=== PATIENT | male | born 1955 | race Caucasian/White ===

== ENCOUNTER 2019-07-11 05:56 | Outpatient (CLI) | payer OTHER ==
[2019-07-11 12:08] LABS: #Basophils 0.1 thou/uL (0.0-0.2); #Lymphocytes 1.1 thou/uL (1.20-3.40); #Monocytes 1.1 thou/uL (0.11-0.59); #Neutrophils 9.1 thou/uL (1.40-6.50); %Basophils 0.4 % (0.0-1.0); %Eosinophils 0.3 % (0.0-10.0); %Lymphocytes 9.9 % (21.0-51.0); %Monocytes 9.9 % (0.0-10.0); %Neutrophils 79.5 % (42.0-75.0); Hemoglobin 17.8 g/dL (14.0-18.0); Mean Corpuscular HGB CONC 32.8 g/dL (32.0-36.0); Mean Corpuscular Volume 94.7 fL (78.0-98.0); Mean Platelet Volume 7.7 fL (7.4-10.4); Platelet Count 232 thou/uL (130-400); RBC Distribution Width 14.4 % (11.5-14.5); Red Blood Cell (RBC) Count 5.72 mill/uL (4.70-6.10); White Blood Cell (WBC) Count 11.4 thou/uL (4.8-10.8)
[2019-07-11 12:48] LABS: Anion Gap 11 mmol/L (10-20); BUN (Urea Nitrogen) 10 mg/dL (8.4-25.7); Calc. Creatinine Clearance 0 mL/min (70-130); Carbon Dioxide 28 mmol/L (23-31); Chloride 101 mmol/L (98-107); Estimated GFR-MDRD 85; Glucose 62 mg/dL (80-115); Potassium 4.1 mmol/L (3.5-5.1); Sodium 136 mmol/L (136-145)
--- NOTE | 2019-07-13 08:24 | EKG ---
Test Reason : Blood Pressure : / mmHG Vent. Rate : 083 BPM Atrial Rate : 083 BPM P-R Int : 142 ms QRS Dur : 094 ms QT Int : 346 ms P-R-T Axes : 004 050 -04 degrees QTc Int : 406 ms Normal sinus rhythm Incomplete right bundle branch block Possible Anterior infarct , age undetermined Abnormal ECG No previous ECGs available Confirmed by DR. Damian PATEL ([id number]) on 07/13/2019 8:24:06 AM Referred By: YEIMI Confirmed By:DR. Damian PATEL
== END 2019-07-11 05:57 | disposition home or self-care (01) ==
LOC: LABBT 05:56 → EDSTATUS 09:00
PROVIDERS: ATTEND Orthopaedic Surgery
DX: Z01.818 Encounter for other preprocedural examination (principal); M75.101 Unspecified rotator cuff tear or rupture of right shoulder, not specified as traumatic
CPT/HCPCS: 80048; 85025; 93005; 93010

== ENCOUNTER 2019-07-11 09:00 | Inpatient (IN) | payer OTHER ==
[2019-07-11 09:48] VITALS: BMI 29.8
[2019-07-27] MEDS ORDERED: Tranexamic Acid 1,000 MG/10 ML VIAL ONE ×2 (05:59→09:42)
[2019-07-27] MEDS ORDERED: Sodium Chloride 0.9% 100 ML ONE (05:59)
[2019-07-27] MEDS ORDERED: Vancomycin 1.5 GRAM/300 ML BAG 1.5 GM/300 ML BAG ONE (05:59)
[2019-07-27] MEDS ORDERED: Lidocaine 1% (PF) 30 ML VIAL ONE (06:22)
[2019-07-27] MEDS ORDERED: Fentanyl 100 MCG/2 ML VIAL ONE ×2 (06:22→06:59)
[2019-07-27] MEDS ORDERED: Midazolam HCl 2 mg/2 ml Vial ONE (06:22)
[2019-07-27] MEDS ORDERED: HYDROmorphone 0.5 MG/0.5 ML SYRINGE ONE (07:00)
[2019-07-27] MEDS ORDERED: HYDROcodone/Acetaminophen 10/325 mg Tablet PO PRN ×4 (07:15→07:35)
[2019-07-27] MEDS ORDERED: Dextrose 5 %-0.45 % NaCl 1,000 ML IV SCH (07:15)
[2019-07-27] MEDS ORDERED: DEXAMETHASONE PO SCH (07:30)
[2019-07-27] MEDS ORDERED: Promethazine HCl 25 MG/ML VIAL IM PRN (07:35)
[2019-07-27] MEDS ORDERED: traMADol HCl 50 MG TAB PO PRN ×2 (07:35)
[2019-07-27] MEDS ORDERED: Acetaminophen 325 MG TAB PO PRN (07:35)
[2019-07-27] MEDS ORDERED: Ondansetron PF 4 MG/2 ML Vial IVP PRN (07:35)
[2019-07-27] MEDS ORDERED: Zolpidem Tartrate 5 MG TAB PO PRN (07:35)
[2019-07-27] MEDS ORDERED: Ropivacaine 0.2% 550 ML 550 ML NERVE BLCK SCH (07:35)
[2019-07-27] MEDS ORDERED: Fentanyl 100 MCG/2 ML VIAL IV PRN (07:36)
[2019-07-27] MEDS ORDERED: Dexamethasone 0.5 MG/5 ML UDCUP PO SCH (07:45)
[2019-07-27] MEDS ORDERED: Non-Formulary Item 1 EACH (Valsartan/Hydrochlorothiazide [Valsartan-Hctz 160-12.5 Mg Tab] PO SCH (09:00)
[2019-07-27] MEDS ORDERED: Hydrochlorothiazide 25 MG TAB PO SCH (09:00)
[2019-07-27] MEDS ORDERED: Valsartan 80 MG TAB PO SCH (09:00)
[2019-07-27] MEDS ORDERED: Aspirin 81 mg Enteric Coated Tablet PO SCH (09:00)
[2019-07-27] MEDS ORDERED: Ropivacaine 0.5% HCl/PF (150 MG/30 ML VIAL) ONE (09:49)
[2019-07-27] MEDS ORDERED: Ondansetron PF 4 MG/2 ML Vial ONE (09:49)
[2019-07-27] MEDS ORDERED: PHENYLEPHRINE-NS 100 MCG/ML 10 ML SYRINGE ONE (09:49)
[2019-07-27] MEDS ORDERED: Dexamethasone 20 MG/5 ML VIAL ONE (09:49)
[2019-07-27] MEDS ORDERED: PROPOFOL 200 MG/20 ML VIAL ONE (09:49)
[2019-07-27] MEDS ORDERED: Glycopyrrolate 0.2 MG/ML 5 ML SYRINGE ONE (09:49)
[2019-07-27] MEDS ORDERED: EPHEDRINE 25 MG/5 ML SYRINGE ONE (09:49)
[2019-07-27] MEDS ORDERED: Ketorolac Tromethamine 30 MG/ML VIAL ONE (09:49)
[2019-07-27] MEDS ORDERED: Lidocaine 1% PF 5 ML VIAL ONE (09:49)
[2019-07-27] MEDS ORDERED: Rocuronium Bromide 10 MG/ML (10ML VIAL) ONE (09:49)
[2019-07-27] MEDS ORDERED: Ropivacaine 0.2% HCl/PF (40 MG/20 ML VIAL) ONE (09:49)
--- NOTE | 2019-07-27 10:56 | OP ---
DATE OF PROCEDURE: 07/27/2019 PROCEDURE: Right reverse total shoulder arthroplasty and biceps tenodesis. PREOPERATIVE DIAGNOSIS: Rotator cuff arthropathy, right shoulder. POSTOPERATIVE DIAGNOSIS: Rotator cuff arthropathy, right shoulder. HAND STRIPPER: Esmer Anguiano PA-C. ESTIMATED BLOOD LOSS: 300. SPECIMEN: None. DRAINS: None. COMPLICATIONS: None. IMPLANTS USED: Tornier 29 standard base plate, 36 mm sphere, 4B Flex stem with a +0 tray and a 36, +9 polyethylene insert, index on 11. NARRATIVE REPORT: After appropriate consent was obtained, the patient was taken to the operating room where general anesthesia was induced. The patient was placed in a beach chair position. Right arm was prepped and draped in the usual sterile fashion. Oblique incision was made in the deltopectoral interval. Cephalic vein was identified and preserved. Dissection was carried down to the conjoint tendon which was retracted medially. The subscapularis was taken down. The biceps tendon was in poor condition. It was taken down off the superior glenoid tubercle and tenodesed to the pectoralis tendon. Excess tendon was removed. The shoulder was then easily dislocated. I opened the humerus with a T handle and then cut a 20 mm retroversion superior cut. The subscapularis had been previously tagged. I used a subscapularis to follow this down to the anterior glenoid and a Bankart retractor was placed anteriorly, and drill was placed posteriorly. I drilled a center hole in the glenoid and reamed with a 1-step reamer. Irrigation was performed. The base plate was deployed without difficulty. Screws were inserted in the usual technique with good compression and fixation. Glenosphere was deployed without difficulty and the screw was tightened. Attention was turned back to the humerus which was opened with a T handle, and after using the acetabular reamer, I then also used a metaphyseal reamer. The appropriate size stem was trialed and polyethylene was trialed until the implants were determined as above. I did drill holes through the humerus, and a cottony Dacron suture was placed around the prosthesis through bone to facilitate repair of the subscapularis. Irrigation was performed. Permanent implants were placed. Shoulder was reduced. The subscapularis was repaired back to bone using the cottony Dacron suture. Irrigation performed again. The deltopectoral interval was tacked shut with 0 Vicryl, subcutaneous tissue was closed with 2-0 Vicryl, skin was closed with delia, and sterile dressing was applied. Job ID: [id number]
[2019-07-27] MEDS ORDERED: Ketorolac Tromethamine 30 MG/ML VIAL IVP SCH ×2 (12:00)
[2019-07-27] MEDS ORDERED: CEFAZOLIN 2 GM in Premix Bag 1 BAG IVPB SCH (14:00)
[2019-07-27] MEDS ORDERED: Vancomycin 1 GM in Premix Bag 1 BAG IVPB SCH (19:00)
[2019-07-27] MEDS ORDERED: Simvastatin 20 MG TAB PO SCH (21:00)
[2019-07-27] MEDS ORDERED: Atorvastatin Calcium 10 MG TAB PO SCH (21:00)
[2019-07-27] MEDS ORDERED: Folic Acid 1 MG TAB PO SCH ×2 (21:00)
== END 2019-07-27 12:00 | disposition home or self-care (01) | DRG 483 ==
LOC: SURG A 07-27 05:47 → EDSTATUS 07-27 09:00
PROVIDERS: ADMIT Orthopaedic Surgery; ATTEND Orthopaedic Surgery
PROC: 0RRJ00Z Replacement of Right Shoulder Joint with Reverse Ball and Socket Synthetic Substitute, Open Approach (ICD-10-PCS; principal; 2019-07-27)
PROC: 0LS30ZZ Reposition Right Upper Arm Tendon, Open Approach (ICD-10-PCS; 2019-07-27)
DX: M12.811 Other specific arthropathies, not elsewhere classified, right shoulder (principal); I10 Essential (primary) hypertension; Z82.49 Family history of ischemic heart disease and other diseases of the circulatory system; Z98.890 Other specified postprocedural states; M75.101 Unspecified rotator cuff tear or rupture of right shoulder, not specified as traumatic
CPT/HCPCS: A4306; C1713; J0690; J1100; J1170; J1885; J2001; J2250; J2405; J2704; J2795; J3010; J3490

== ENCOUNTER 2020-08-13 09:23 | Day surgery (SDC) | payer OTHER ==
[2020-08-12 10:35] VITALS: BMI 29.8
[2020-08-13] MEDS ORDERED: Fentanyl 100 MCG/2 ML VIAL ONE ×2 (12:40→14:09)
[2020-08-13] MEDS ORDERED: PROPOFOL 200 MG/20 ML VIAL ONE (12:51)
[2020-08-13] MEDS ORDERED: Lidocaine 1% PF 5 ML VIAL ONE (12:51)
[2020-08-13] MEDS ORDERED: Dexamethasone 20 MG/5 ML VIAL ONE (12:51)
[2020-08-13] MEDS ORDERED: Ondansetron PF 4 MG/2 ML Vial ONE (12:51)
[2020-08-13] MEDS ORDERED: Lidocaine 1% w/Epinephrine 1:100K 20 ML VIAL ONE (13:11)
== END 2020-08-13 16:15 | disposition home or self-care (01) ==
LOC: SDC 09:23
PROVIDERS: ATTEND Orthopaedic Surgery
PROC: 01N50ZZ Release Median Nerve, Open Approach (ICD-10-PCS; principal; 2020-08-13)
PROC: 01N40ZZ Release Ulnar Nerve, Open Approach (ICD-10-PCS; principal; 2020-08-13)
DX: G56.23 Lesion of ulnar nerve, bilateral upper limbs (principal); G56.03 Carpal tunnel syndrome, bilateral upper limbs; I10 Essential (primary) hypertension; E78.00 Pure hypercholesterolemia, unspecified; M10.9 Gout, unspecified; M19.90 Unspecified osteoarthritis, unspecified site; M06.9 Rheumatoid arthritis, unspecified; Z79.82 Long term (current) use of aspirin; Z79.899 Other long term (current) drug therapy
CPT/HCPCS: J0690; J1100; J2405; J2704; J3010